=== PATIENT | female | born 1960 | race Hispanic/Latino ===

== ENCOUNTER 2018-10-09 00:57 | Emergency (ER) | payer SELFPAY ==
[2018-10-09] MEDS ORDERED: ACETAMINOPHEN EXTRA STRENGTH 500 MG TABLET ONE (01:12)
== END 2018-10-09 02:33 | disposition home or self-care (01) ==
LOC: EDH 00:57
DX: S93.401A Sprain of unspecified ligament of right ankle, initial encounter (principal); S93.601A Unspecified sprain of right foot, initial encounter; E11.9 Type 2 diabetes mellitus without complications; Z90.710 Acquired absence of both cervix and uterus; Z88.0 Allergy status to penicillin; X58.XXXA Exposure to other specified factors, initial encounter; Y93.89 Activity, other specified; Y92.098 Other place in other non-institutional residence as the place of occurrence of the external cause; Y99.8 Other external cause status
CPT/HCPCS: 73610; 73630

== ENCOUNTER 2023-11-25 12:09 | Emergency (ER) | payer OTHER ==
[~2023-11-25] VITALS: Ht 157.5 cm; Wt 66.7 kg
[2023-11-25] MEDS ORDERED: CEPH500B PO (13:09)
[2023-11-25 13:12] VITALS: BP 131/76; PULSE 81; RESP 18; O2SAT 98
[2023-11-25] MEDS: CEPHALEXIN 500 MG CAPSULE PO ONE (13:23)
[2023-11-25] MEDS: NEOMY SULF/BACITRA/POLYMYXIN B 1 EACH PACKET TP ONE (13:23)
[2023-11-25] MEDS: TETANUS/DIPHTHERIA TOXOID [ADULT] 0.5 ML VIAL IM ONE (13:24)
== END 2023-11-25 13:35 | disposition home or self-care (01) ==
LOC: EDH 12:09
DX: S61.211A Laceration without foreign body of left index finger without damage to nail, initial encounter (principal); E11.9 Type 2 diabetes mellitus without complications; Z98.890 Other specified postprocedural states; Z88.0 Allergy status to penicillin; W26.0XXA Contact with knife, initial encounter; Y93.89 Activity, other specified; Y92.89 Other specified places as the place of occurrence of the external cause; Y99.8 Other external cause status
CPT/HCPCS: 90471; 90714

== ENCOUNTER 2024-12-14 02:14 | Emergency (ER) | payer SELFPAY ==
[~2024-12-14] VITALS: Ht 152.4 cm; Wt 68.0 kg
[~2024-12-14 02:14] MED LIST: CEPH500B PO
[2024-12-14 02:45] LABS: RAPID GROUP A STREP negative (NEGATIVE)
[2024-12-14] MEDS: ondanSETRON 4MG INJ IVP ONE (02:46)
[2024-12-14 02:49] LABS: BASOPHILS # (AUTO) 0.04 K/uL (0.00-0.20); BASOPHILS % (AUTO) 0.5 % (0.0-5.0); EOSINOPHILS # (AUTO) 0.04 K/uL (0.00-0.70); EOSINOPHILS % (AUTO) 0.5 % (0.0-8.0); HEMATOCRIT 43.6 % (36-48); IMMATURE GRANULOCYTE ABSOLUTE 0.02 K/uL (0-1); LYMPHOCYTES # (AUTO) 1.1 K/uL (1.0-4.8); LYMPHOCYTES % (AUTO) 13.6 % (21.0-51.0); MEAN CORPUSCULAR HEMOGLOBIN 27.8 pg (27.0-33.0); MEAN CORPUSCULAR HGB CONC 32.6 g/dL (32.0-36.0); MEAN CORPUSCULAR VOLUME 85.3 fL (79-99); MONOCYTES # (AUTO) 0.6 K/uL (0.1-1.0); MONOCYTES % (AUTO) 7.5 % (3.0-13.0); NEUTROPHILS # (AUTO) 6.2 K/uL (1.8-7.7); NEUTROPHILS % (AUTO) 77.6 % (40.0-77.0); PLATELET COUNT (AUTO) 177 K/uL (130-400); RED BLOOD CELL COUNT(AUTO) 5.11 MIL/uL (4.00-5.50); RED CELL DISTRIBUTION WIDTH 12.6 % (11.0-15.5)
[2024-12-14 02:56] LABS: COVID19 (SARS ANTIGEN RAPID) PRESUMPTIVE NEGATIVE (NEGATIVE); INFLUENZA TYPE A Negative For Type A (NEGATIVE); INFLUENZA TYPE B Negative For Type B (NEGATIVE)
[2024-12-14 03:06] LABS: CREATININE 0.6 mg/dL (0.5-1.0); POTASSIUM 3.8 mmol/L (3.5-5.1)
--- NOTE | 2024-12-14 03:16 | ERN ---
ED Note History of Present Illness Stated Complaint: COUGH Chief Complaint: Cough Time Seen by MD: 02:18 Dictation: This is a 64-year-old female who was brought to the emergency room with complaints of severe coughing spells going on for the past couple of days associated with sore throat headache and chills. Cough is so intense and paroxysmal that she has been vomitings with severe coughing spell. Apparently she had 4 episodes of emesis prior to ER visit. No mucopurulent sputum, hemoptysis. Subjective fever with chills. No diarrhea Temperature 99.2 pulse 100 respirations 17 blood pressure 130/74 with a pulse oximetry of 100% on room air Her chronic medical problems include diabetes mellitus, hypertension, hypercholesterolemia Allergies: Coded Allergies: Penicillins (Unverified Allergy, Unknown, 11/25/23) Home Meds Active Scripts Cephalexin Monohydrate (Keflex) 500 Mg Cap, 500 MG PO QID for 7 Days, #28 CAP Prov:VINCENT PONCE [employer]ELOPER 11/25/23 Past Medical History Past Medical History: Diabetes-Type II, High Cholesterol, Hypertension Surgical History: Family History: Negative Social History: Negative History: Not Applicable RN Note Reviewed/Agreed w/PFSH: Yes Review of System Dictation Constitutional: Negative for fever,chills, and weight loss Eyes: Negative for injury, pain,redness, and discharge ENT: Negative for injury,pain or swelling positive for nasal congestion and sore throat Cardiovascular: Negative for chest pain, palpitations, and edema Respiratory: Negative for shortness of breath, positive for cough, and wheezing, Abdomen/GI: Negative for abdominal pain, nausea, positive for vomiting, diarrhea, and constipation Back: Negative for injury and pain : Negative for injury, bleeding and discharge MS/Extremity: Negative for injury and deformity Skin: Negative for rash, and discoloration Neuro: Negative for headache, weakness, numbness, tingling, and seizure Psych: Negative for suicide ideation, homicidal ideation, and hallucinations Initial Vital Sign VS Vital Signs Date Time Temp Pulse Resp B/P (MAP) Pulse Ox O2 Delivery O2 Flow Rate FiO2 12/14/24 02:16 99.1 100 17 130/74 100 Room Air 0 12/14/24 02:47 21 Physical Exam Dictation General: awake, alert, NAD actively vomitings and coughing spells Head/Face: Normocephalic, atraumatic Eyes: PERRL, EOMI, vision at baseline ENT: oral cavity clear, TMs clear, no signs of infection Neck: Trachea midline, supple, no nuchal rigidity Cardiovascular: RRR, normal S1/S2, No MRGs, no JVD Respiratory: CTAB, no respiratory distress, No rales or wheezes Abdomen: Soft, non-tender, non-distended, normal bowel sounds, no guarding or rebound. Skin: Warm, dry, normal turgor, no rash MS/Extremity: Pulses equal, no cyanosis, neurovascular intact, FROM Neuro: COAx4, GCS 15, strength 5/5, CN 2-12 intact, normal cerebellar exam, normal gait, Psych: Normal behavior, mood, and affect normal Extremities-trace edema without any palpable cords, Homans sign is negative Results (Laboratory/Radiology) Laboratory/Radiology Laboratory Tests Test 12/14/24 02:22 12/14/24 02:40 Influenza Type A Antigen Negative For Type A Influenza Type B Antigen Negative For Type B SARS-CoV-2 Antigen (Rapid) PRESUMPTIVE NEGATIVE Group A Streptococcus Rapid negative (NEGATIVE) White Blood Count 8.0 K/uL (4.8-10.8) Red Blood Count 5.11 MIL/uL (4.00-5.50) Hemoglobin 14.2 g/dL (12.0-16.0) Hematocrit 43.6 % (36-48) Mean Corpuscular Volume 85.3 fL (79-99) Mean Corpuscular Hemoglobin 27.8 pg (27.0-33.0) Mean Corpuscular Hemoglobin Concent 32.6 g/dL (32.0-36.0) Red Cell Distribution Width 12.6 % (11.0-15.5) Platelet Count 177 K/uL (130-400) Mean Platelet Volume 10.2 fL (7.5-10.5) Immature Granulocyte % (Auto) 0.3 % (0-1) Neutrophils (%) (Auto) 77.6 % (40.0-77.0) H Lymphocytes (%) (Auto) 13.6 % (21.0-51.0) L Monocytes (%) (Auto) 7.5 % (3.0-13.0) Eosinophils (%) (Auto) 0.5 % (0.0-8.0) Basophils (%) (Auto) 0.5 % (0.0-5.0) Neutrophils # (Auto) 6.2 K/uL (1.8-7.7) Lymphocytes # (Auto) 1.1 K/uL (1.0-4.8) Monocytes # (Auto) 0.6 K/uL (0.1-1.0) Eosinophils # (Auto) 0.04 K/uL (0.00-0.70) Basophils # (Auto) 0.04 K/uL (0.00-0.20) Absolute Immature Granulocyte (auto 0.02 K/uL (0-1) Nucleated Red Blood Cells 0.0 % (0.0-0.19) Sodium Level 131 mmol/L (136-145) L Potassium Level 3.8 mmol/L (3.5-5.1) Chloride Level 97 mmol/L (101-111) L Carbon Dioxide Level 27 mmol/L (21-32) Blood Urea Nitrogen 9 mg/dL (7-18) Creatinine 0.6 mg/dL (0.5-1.0) Glomerular Filtration Rate Calc 99 mL/min (>90) Random Glucose 253 mg/dL (70-105) H Total Calcium 9.3 mg/dL (8.5-10.1) Labs Reviewed?: Yes ED Course ED Course Orders Procedure Category Date Status Time Covid19 (Sars Antigen LAB 12/14/24 Complete Rapid) 02:19 Influenza Type A & B, LAB 12/14/24 Complete Rapid 02:19 Rapid (Group A Strep) LAB 12/14/24 Complete 02:19 Ondansetron 4mg Inj PHA 12/14/24 Complete (Zofran 4mg Inj) 03:00 Cbc With Differential LAB 12/14/24 Complete 02:34 Basic Metabolic Panel LAB 12/14/24 Complete 02:34 Chest 1vw RAD 12/14/24 Taken 02:34 Ketorolac PHA 12/14/24 Complete Tromethamine 15mg/Ml 03:30 0.9% Nacl 500ml PHA 12/14/24 Complete Iv.Soln (Ns 500ml 03:30 Methylprednisolone PHA 12/14/24 Complete Succ 40mg (Solu-Medro 04:00 Phenol (Sore Throat PHA 12/14/24 In Process [place]) 04:00 Ipratropium/Albuterol PHA 12/14/24 Complete Neb (Duoneb) 04:00 Current Medications Medications (Trade) Dose Ordered Sig/[place] Route PRN Reason Start Time Stop Time Status Last Admin Dose Admin Albuterol (DUOneb) 1 UDVIAL ONCE ONCE IH 12/14/24 04:00 12/14/24 04:01 DC 12/14/24 04:14 Ketorolac Tromethamine (toRADol) 15 mg ONCE ONCE IV 12/14/24 03:30 12/14/24 03:31 DC 12/14/24 03:33 Methylprednisolone Sodium Succinate (Solu-medROL 40MG) 40 mg ONCE ONCE IVP 12/14/24 04:00 12/14/24 04:01 DC 12/14/24 04:05 Ondansetron HCl (zoFRAN 4MG INJ) 4 mg ONCE ONCE IVP 12/14/24 03:00 12/14/24 03:01 DC 12/14/24 02:46 Phenol (Sore Throat [place]) 1 SPRAY Q4H PRN PO SORE THROAT 12/14/24 04:00 01/13/25 03:59 12/14/24 04:11 Sodium Chloride 500 ml @ 0 mls/hr ONCE ONCE IV 12/14/24 03:30 12/14/24 03:31 DC 12/14/24 03:33 Vital Signs Date Time Temp Pulse Resp B/P (MAP) Pulse Ox O2 Delivery O2 Flow Rate FiO2 12/14/24 04:14 91 18 12/14/24 02:47 99.5 98 18 165/56 98 Room Air* 0 21 12/14/24 02:16 99.1 100 17 130/74 100 Room Air 0 We will perform diagnostic labs, imaging and administer medications according to the patient's complaint. Once the results are available, will review and personally interpreted the labs to rule out any acute life-threatening emergency the trach require immediate intervention and treatment. I will then re-evaluate the patient after treatment and diagnostic exams have return to determine whether the patient requires any further testing, can safely be discharged home or need further admission to hospital for additional treatment and evaluation. 3:10 a.m. CBC is with a normal limits her glucose is 253. BNP 7 was significant for mild hyponatremia. Viral serology was negative for influenza COVID and also strep pharyngitis 6:09 a.m. feels clinically much improved on steroid antiemetics and symptomatic management. We will discharge her with p.o. antibiotics and a low-dose steroid and educated her on monitoring her sugars Medical Decision Making MDM MDM: Differential diagnosis: Sinusitis, URI, viral syndrome, bronchitis Rationale: Tests considered and ordered secondary to shared decision making include: Previous outside records reviewed: Old ER visits. Risk of complication and/or morbidity or mortality of patient management: None Medications-Per medication reconciliation Need for hospitalization: Patient does not meet criteria for hospitalization. Need for emergency major/minor surgery: No There are no social concerns with this patient. Prescription drug management Prescriptions will include symptomatic care Patient's prior external medical records from other ER visits were reviewed by me as indicated. Prior testing and results from previous visits were reviewed. Prior tests were taken into account with medical decision making and resource utilization, independent historian/historians were used to obtain complete medical history. I independently interpreted the test that were performed, results were reviewed by me and considered findings on radiology if ordered. Medical management and examination interpretation discussions were had by me with other qualified healthcare professionals as indicated for the patient's care. Problem List Problem List: (1) History of nausea and vomiting (2) Acute bronchitis DX & DISP Disposition: Discharge Departure Impression: Primary Impression: History of nausea and vomiting Additional Impression: Acute bronchitis Condition: Stable Scripts Azithromycin (Azithromycin) 250 Mg Tablet 1 TAB PO AD for 5 Days, #6 TAB 0 Refills 2 the first day followed by 1 for days 2-5 Prov: INÉS AMIN MD 12/14/24 Prednisone (Prednisone) 20 Mg Tablet 1 TAB PO AD for 6 Days, #14 TAB 0 Refills TAKE 1 TAB BY MOUTH THREE TIMES PER DAY X3 DAYS, THEN TAKE 1 TAB BY MOUTH TWICE A DAY X2 DAYS, THEN TAKE 1 TAB BY MOUTH ONCE A DAY X1 DAY. Prov: INÉS AMIN MD 12/14/24 Additional Instructions: Patient and the caregiver have been informed of all the diagnostic tests and the imaging conducted during the today's visit to the emergency room and has verbalized understanding of the results I have personally reviewed and interpreted all diagnostic exams performed here in the ER today as well as the vital signs documented by the nursing staff. The patient is now being discharged to home and should follow up with the primary care physician or the specialist as directed by the ER staff. Follow-up with primary care provider in 1 to 2 days. Take medications as directed here in the emergency room. Okay to continue home medications unless otherwise discussed during your visit in the emergency room today. Return to your nearest emergency room if symptoms worsen or if there is no improvement. Call 911 if you need immediate assistance. Take Tylenol or Motrin [id number] as needed and if no contraindications are present. Increase oral hydration. A wound culture or urine culture was ordered here in the emergency room department please follow-up with primary care provider and advise them to get repeat ports from our facility. If you had any [place] wrap/splints that were applied here, please do not remove them until you see your primary care or specialty. Referrals: EM VALLEJO (PCP) INÉS AMIN MD Dec 14, 2024 03:16
[2024-12-14] MEDS: ketOROlac 15MG/ML VIAL (15MG/ML) IV ONE (03:33)
[2024-12-14] MEDS: 0.9% NACL 500ML IV.SOLN 500 ML IV ONE (03:33)
[2024-12-14] MEDS: Solu-medROL 40MG VIAL IVP ONE (04:05)
[2024-12-14] MEDS: PHENOL 177 ML BOTTLE PO PRN (04:11)
[2024-12-14 04:14] VITALS: PULSE 91; RESP 18
[2024-12-14] MEDS: IpraTROPium/alBUTERol SULFATE 3 ML SOLUTION IH ONE (04:14)
[2024-12-14] MEDS ORDERED: AZIT250T9 PO (06:09)
[2024-12-14] MEDS ORDERED: PRED20TA3 PO (06:09)
[2024-12-14 06:26] VITALS: BP 145/54; PULSE 88; RESP 18; TEMP 99.1; O2SAT 100
--- NOTE | 2024-12-14 11:29 | HMCIMG ---
PORTABLE CHEST RADIOGRAPH INDICATION: severe cough and vomitings COMPARISON: None FINDINGS: Heart size is normal. The pulmonary vascularity and gaetano appear normal. No abnormal pulmonary parenchymal opacity or consolidation identified. No significant pleural effusion noted. No pneumothorax detected. IMPRESSION: No radiographic evidence for any acute cardiopulmonary process.
== END 2024-12-14 06:37 | disposition home or self-care (01) ==
LOC: EDH 02:14
DX: J20.9 Acute bronchitis, unspecified (principal); E11.9 Type 2 diabetes mellitus without complications; E78.00 Pure hypercholesterolemia, unspecified; I10 Essential (primary) hypertension; Z20.822 Contact with and (suspected) exposure to COVID-19; Z88.0 Allergy status to penicillin; Z98.890 Other specified postprocedural states
CPT/HCPCS: 99284; 96374; 96375; 71045; 87426; 80048; 85025; 87880; 87804 ×2; 36415; 94640; J1885; J2919; J7040; J2405